=== PATIENT | male | born 1980 | race Hispanic/Latino ===

== ENCOUNTER 2017-09-18 18:01 | Emergency (ER) | payer SELFPAY | END 2017-09-18 19:35 | disposition home or self-care (01) | LOC: ERS 18:01 | DX: R59.0 Localized enlarged lymph nodes (principal) | CPT/HCPCS: 99283 ==

== ENCOUNTER 2017-09-20 15:48 | Emergency (ER) | payer SELFPAY | END 2017-09-20 18:36 | disposition home or self-care (01) | LOC: ERS 15:48 | DX: L72.3 Sebaceous cyst (principal) | CPT/HCPCS: 99283 ==